=== PATIENT | male | born 1980 | race African-American/Black ===

== ENCOUNTER 2016-09-18 01:06 | Inpatient (IN) | payer OTHER ==
--- NOTE | ~2016-09-18 | DS ---
Unit #: [id number] #: [id number] Patient: KAYLEN LEVIN [id number] [facility] [address] [place] [address] [id number] MR#: [id number] NAME: KAYLEN LEVIN. ROOM: P176 Age: 36 Sex: M Admission Date: 09/18/2016 : 1980 Discharge Date: 09/23/2016 Attending Physician: Sj Springer M.D. Primary Care Physician: Primary Care Physician No DISCHARGE SUMMARY REASON FOR ADMISSION John is a 35-year-old man, who was found sleeping outside of the [facility], having overdosed on "spice" after the use of crack and heroin. He had suicidal ideation and reported history of bipolar disorder. He was admitted to [facility]. DIAGNOSTIC STUDIES LABORATORY RESULTS: Please see hospital chart. HOSPITAL COURSE The patient was admitted and placed on suicide precautions. Geodon was initiated for treatment of bipolar depression, which the patient stated had been effective in the past. He had minimal participation in groups and activities, and contracted for safety on the date of discharge, although, he was still quite dysphoric about his homeless status. DISCHARGE DIAGNOSES AXIS I: Bipolar, depressed; polysubstance dependence. AXIS II: No diagnosis. AXIS III: None acute. AXIS IV: AXIS V: DISCHARGE INSTRUCTIONS Follow up with the [facility] and [facility]. DISCHARGE MEDICATIONS Geodon 40 mg at bedtime for mood. CONDITION AT DISCHARGE Fair. PROGNOSIS Fair. DIET AND ACTIVITY Per primary care doctor. Dictated by... Sj Springer M.D. Unit #: [id number] #: [id number] Patient: KAYLEN LEVIN [facility]/modl TD: 11/28/2016 14:17 JOB #: [id number] DISCHARGE SUMMARY Page 1 of 1 X Sj Springer MD X DISCHARGE SUMMARY
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
--- NOTE | ~2016-09-18 | HP ---
Unit #: [id number] #: [id number] Patient: MICHOACANO LEVIN [id number] [place] [address] [id number] I MR#: [id number] NAME: MICHOACANO LEVIN. ROOM: P176 Age: 35 Sex: M Admission Date: 09/18/2016 : 1980 Attending Physician: Sj Springer M.D. Admitting Physician: Sj Springer M.D. Primary Care Physician: Primary Care Physician No HISTORY AND PHYSICAL HISTORY OF PRESENT ILLNESS Michoacano is a 35 year old admitted to [facility] with psychotic behavior. PAST MEDICAL HISTORY 1. History of illicit substance abuse to include crack cocaine and spice 2. Morbid obesity PAST SURGICAL HISTORY Nothing reported ALLERGIES No known drug allergies. SOCIAL HISTORY Smokes one pack per day. Denies alcohol, admits to a history of illicit substance abuse to include crack cocaine and spice. FAMILY HISTORY Medically noncontributory. REVIEW OF SYSTEMS CONSTITUTIONAL: No fever or chills. HEENT: Denies any sore throat, ear pain or runny nose. CARDIOVASCULAR: Denies chest pain, irregular heart rhythm or palpitations. CHEST: Denies shortness of breath or cough. No hemoptysis. GASTROINTESTINAL: Denies nausea, vomiting, diarrhea or chronic constipation. ENDOCRINE: Denies history of increased thirst or urination. No recent significant weight loss or gain. GENITOURINARY: Denies dysuria, frequency, or hematuria. SKIN: Denies any rashes. HEMATOLOGIC: Denies history of increased bleeding or bruising. MUSCULOSKELETAL: Denies any hot, swollen joints. No generalized muscle pain. NEUROLOGIC: Denies problems with vision or speech. No frequent, severe headaches. No numbness, tingling or weakness in any extremities. Denies loss of bladder or bowel control. CURRENT MEDICATIONS 1. Geodon 40 mg q.h.s. 2. Nicotine patch 14 mg q day 3. Desyrel p.r.n. Unit #: [id number] #: [id number] Patient: MICHOACANO LEVIN 4. Milk of Magnesia p.r.n. 5. Maalox p.r.n. 6. Tylenol p.r.n. PHYSICAL EXAMINATION GENERAL: Alert, well-nourished, in no apparent distress. VITAL SIGNS: Blood pressure 124/78, heart rate 74, respirations 16, temperature 98.6. WEIGHT: 280 pounds. HEIGHT: 5'11". SKIN: Warm and dry without rash or lesion. HEENT: Normocephalic. TMs not viewed. Oral and nasal passages clear. Conjunctivae clear. Pupils equal, round and reactive to light and accommodation. Extraocular movements intact. NECK: Supple without lymphadenopathy or thyromegaly. HEART: Regular rate and rhythm without murmur. LUNGS: Clear. ABDOMEN: Soft, nontender. : Not done. EXTREMITIES: No evidence of cyanosis, clubbing or edema. Moves all extremities without focal deficit. NEUROLOGICAL: Grossly within normal limits. Cranial Nerves: II: Visual jasso are intact. III, IV AND : Extraocular movements are intact. Pupils are equal, round and reactive to light. V: Facial sensation is grossly normal. VII: Facial movements and expression are normal. VIII: Auditory acuity grossly intact. IX, X: Uvula is midline. Phonation is normal. XI: Patient shrugs shoulders and turns head normally. XII: Tongue protrudes in the midline. Sensory and Motor Function: Sensory and motor sensation is grossly normal. Motor: moves all extremities well. Coordination: Gait is normal. Deep Tendon Reflexes: Intact. IMPRESSION Psychiatric admission RECOMMENDATIONS PSYCHIATRIC: Per psychiatrist. MEDICAL: I see no contraindications to participating in facility's activities. MEDICAL PROGNOSIS Good. MEDICAL CONDITION Stable. Dictated by... Nidia Broussard P.A.-C. for Pily Pope/georgnia Unit #: [id number] #: [id number] Patient: MICHOACANO LEVIN TD: 09/18/2016 21:20 JOB #: [id number] HISTORY AND PHYSICAL Page 1 of 1 X Nidia Broussard HISTORY AND PHYSICAL
--- NOTE | ~2016-09-18 | PN ---
Unit #: [id number] #: [id number] Patient: MICHOACANO LEVIN [id number] [facility] [address] [place] [address] [id number] I MR#: [id number] NAME: MICHOACANO LEVIN. ROOM: P176 Age: 35 Sex: M Admission Date: 09/18/2016 : 1980 Attending Physician: Sj Springer M.D. Admitting Physician: Sj Springer M.D. Primary Care Physician: Primary Care Physician Lety HERNANDEZ PROGRESS NOTES DATE 09/21/2016 DISCUSSION Michoacano continues to have a downcast mood and affect. He is sleeping better with the Geodon and tolerating it well with no adverse side effects. He is alert and fully oriented with no evidence of psychosis and improved depression today. ASSESSMENT Bipolar, depressed. PLAN Continue current treatment plan. Dictated by... Pily Osullivan/kira TD: 09/23/2016 06:54 JOB #: [id number] [facility] PROGRESS NOTES Page 1 of 1 X Sj Springer MD PROGRESS NOTE
[2016-09-18 09:44] LABS: BASOPHIL# 0.1 X10e3 (0-0.3); BASOPHIL% 0.5 % (0-2.5); EOSINOPHIL# 0.2 X10e3 (0-0.7); EOSINOPHIL% 2.1 % (0.0-7.0); HEMATOCRIT 41.5 % (38.0-50.0); HEMOGLOBIN 13.3 gm/dL (13.0-16.0); LYMPHOCYTE# 3.2 X10e3 (1.0-3.5); LYMPHOCYTE% 30.2 % (17.0-45.0); MEAN CELL VOLUME 82.3 FL (83-96); MEAN CORPUSCULAR HEMOGLOBIN 26.4 PG (28-34); MEAN CORPUSCULAR HGB CONC 32.1 g/dL (30-36); MEAN PLATELET VOLUME 9.6 FL (6.5-11.5); MONOCYTE% 9.2 % (3.0-12.0); NEUTROPHIL# 6.2 X10e3 (1.5-7.1); PLATELET COUNT 276 X10e3 (140-420); RED BLOOD COUNT 5.05 X10e (3.90-5.60); WHITE BLOOD COUNT 10.7 X10e3 (4.0-10.5)
[2016-09-18 09:55] LABS: DIFF IND NO
[2016-09-18 10:10] LABS: ALBUMIN SERUM 3.4 g/dL (3.5-5.0); BILIRUBIN,TOTAL 0.4 mg/dL (0.2-2.0); BUN/CREATININE RATIO 18.88; CALCIUM SERUM 9.1 mg/dL (8.4-10.2); CREATININE SERUM 0.9 mg/dL (0.6-1.4); GLOM FILT RATE Estimated 127.8 mL/min (>60); POTASSIUM 4.2 mmol/L (3.5-5.1)
[2016-09-19 10:38] LABS: AMPHETAMINE NEG (NEG); BARBITURATES NEG (NEG); BENZODIAZEPINES NEG (NEG); COCAINE POS (NEG); MARIJUANA NEG (NEG); OPIATES NEG (NEG); TRICYCLIC ANTIDEPRESSANTS NEG (NEG); U METHADONE NEG (NEG)
== END 2016-09-23 11:20 | disposition home or self-care (01) | DRG 885 ==
LOC: P1E 01:06
PROVIDERS: Psychiatry & Neurology Psychiatry
DX: F31.30 Bipolar disorder, current episode depressed, mild or moderate severity, unspecified (principal); F14.20 Cocaine dependence, uncomplicated; F19.20 Other psychoactive substance dependence, uncomplicated; E66.01 Morbid (severe) obesity due to excess calories; F17.210 Nicotine dependence, cigarettes, uncomplicated
CPT/HCPCS: 80053; 80307; 85025

== ENCOUNTER 2016-09-27 02:00 | Inpatient (IN) | payer OTHER ==
--- NOTE | ~2016-09-27 | PN ---
Unit #: [id number] #: [id number] Patient: MICHOACANO LEVIN [id number] [facility] [address] [place] [address] [id number] I MR#: [id number] NAME: MICHOACANO LEVIN. ROOM: [facility] Age: 35 Sex: M Admission Date: 09/27/2016 : 1980 Attending Physician: Sj Springer M.D. Admitting Physician: Sj Springer M.D. Primary Care Physician: Primary Care Physician Lety HERNANDEZ PROGRESS NOTES DATE 10/02/2016 DISCUSSION Michoacano continues to have active depression and some suicidal thinking today. He is a little sleepy this morning from his increased dose of Geodon last night. However, he is able to get up and participate in groups and activities. He is alert and fully oriented. Memory and concentration are fair and thought processes are goal directed. There is no psychosis. ASSESSMENT 1. Bipolar, depressed. 2. Cocaine dependence. PLAN Continue current treatment plan. Dictated by... Pily Osullivan/clare TD: 10/02/2016 22:43 JOB #: [id number] [facility] PROGRESS NOTES Page 1 of 1 X Sj Springer MD PROGRESS NOTE
--- NOTE | ~2016-09-27 | PN ---
Unit #: [id number] #: [id number] Patient: KAYLEN LEVIN [id number] [facility] [address] [place] [address] [id number] I MR#: [id number] NAME: KAYLEN LEVIN. ROOM: 77 Age: 35 Sex: M Admission Date: 09/27/2016 : 1980 Attending Physician: Sj Springer M.D. Admitting Physician: Sj Springer M.D. Primary Care Physician: Primary Care Physician Lety HERNANDEZ PROGRESS NOTES DATE OF SERVICE: 10/01/2016 DISCUSSION John has tolerated his increased dose of Geodon with no adverse side effects. His mood continues to be labile and depressed with a congruent affect. He is alert and fully oriented. Memory and concentration were fair to good. Thought processes were goal directed with no psychosis. ASSESSMENT Bipolar depressed, history of cocaine abuse. PLAN Continue current treatment plan. Dictated by... Pily Osullivan/elizabeth TD: 10/01/2016 23:42 JOB #: [id number] [facility] PROGRESS NOTES Page 1 of 1 X Sj Springer MD PROGRESS NOTE
--- NOTE | ~2016-09-27 | DS ---
Unit #: [id number] #: [id number] Patient: MICHOACANO LEVIN [id number] [facility] [address] [place] [address] [id number] I MR#: [id number] NAME: MICHOACANO LEVIN. ROOM: [facility] Age: 35 Sex: M Admission Date: 09/27/2016 : 1980 Discharge Date: 10/04/2016 Attending Physician: Sj Springer M.D. Primary Care Physician: Primary Care Physician No DISCHARGE SUMMARY REASON FOR ADMISSION Michoacano is a 35-year-old man, recently discharged from this facility, who became depressed and hopeless while staying at [facility]. He also relapsed on cocaine and had suicidal ideation with a plan to jump off a bridge. He could not contract for safety and was returned to [facility]. DIAGNOSTIC STUDIES LABORATORY RESULTS: Please see hospital chart. HOSPITAL COURSE Michoacano was admitted and placed on suicide precautions. Geodon was restarted at 40 mg bedtime, later increased to 80 mg for improved control of depression. He had minimal detox or "crash" from his cocaine abuse and tolerated his medication with no adverse side effects. He was active in seeking placement outside of the hospital, and on the date of discharge, he had achieved placement at a local long-term care facility and was discharged in stable condition. DISCHARGE DIAGNOSES AXIS I: Cocaine dependence, bipolar depressed. AXIS II: No diagnosis. AXIS III: None acute. AXIS IV: AXIS V: DISCHARGE INSTRUCTIONS Follow up with [facility] in [place], [place]. DISCHARGE MEDICATIONS Geodon 80 mg at bedtime for mood stability. CONDITION AT DISCHARGE Improved. PROGNOSIS Fair to good. DIET AND ACTIVITY Per primary care doctor. Unit #: [id number] #: [id number] Patient: MICHOACANO LEVIN Dictated by... Sj Springer M.D. [facility]/modmaurice TD: 10/05/2016 00:59 JOB #: [id number] DISCHARGE SUMMARY Page 1 of 1 X Sj Springer MD X DISCHARGE SUMMARY
--- NOTE | ~2016-09-27 | HP ---
Unit #: [id number] #: [id number] Patient: MICHOACANO LEVIN [id number] [place] [address] [id number] I MR#: [id number] NAME: MICHOACANO LEVIN. ROOM: [facility] Age: 35 Sex: M Admission Date: 09/27/2016 : 1980 Attending Physician: Sj Springer M.D. Admitting Physician: Sj Springer M.D. Primary Care Physician: Primary Care Physician No HISTORY AND PHYSICAL NOTE Michoacano is a 35-year-old male admitted on 09/27/2016 to [facility] for suicidal ideation. He was previously admitted on 09/18/2016 for suicidal ideation and psychotic behavior. Reviewed the history and physical from that admission, and there are no changes. Dictated by... Carlton Pitts TD: 09/28/2016 09:09 JOB #: [id number] HISTORY AND PHYSICAL Page 1 of 1 X CAMPBELL BARAHONA APRN HISTORY AND PHYSICAL
--- NOTE | ~2016-09-27 | PN ---
Unit #: [id number] #: [id number] Patient: KAYLEN LEVIN [id number] [facility] [address] [place] [address] [id number] I MR#: [id number] NAME: KAYLEN LEVIN. ROOM: 77 Age: 35 Sex: M Admission Date: 09/27/2016 : 1980 Attending Physician: Sj Springer M.D. Admitting Physician: Sj Springer M.D. Primary Care Physician: Primary Care Physician Lety HERNANDEZ PROGRESS NOTES DATE OF SERVICE: 10/03/2016 DISCUSSION Mr. Levin showing some improvement today, although, he remains depressed and somewhat agitated. He is working actively on discharge planning. He is alert and fully oriented with no evidence of psychosis. ASSESSMENT Bipolar, depressed and cocaine dependence. PLAN We will continue working toward discharge in the near future with long-term placement at a chemical dependence facility. Dictated by... Pily OsullivanH/elizabeth TD: 10/04/2016 18:43 JOB #: [id number] [facility] PROGRESS NOTES Page 1 of 1 X Sj Springer MD PROGRESS NOTE
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
[2016-09-28 14:07] LABS: BASOPHIL# 0.1 X10e3 (0-0.3); BASOPHIL% 0.9 % (0-2.5); EOSINOPHIL# 0.3 X10e3 (0-0.7); EOSINOPHIL% 3.5 % (0.0-7.0); HEMATOCRIT 42.5 % (38.0-50.0); HEMOGLOBIN 13.7 gm/dL (13.0-16.0); LYMPHOCYTE# 2.4 X10e3 (1.0-3.5); LYMPHOCYTE% 24.5 % (17.0-45.0); MEAN CELL VOLUME 82.1 FL (83-96); MEAN CORPUSCULAR HEMOGLOBIN 26.5 PG (28-34); MEAN CORPUSCULAR HGB CONC 32.3 g/dL (30-36); MEAN PLATELET VOLUME 9.6 FL (6.5-11.5); MONOCYTE# 0.8 X10e3 (0-1.0); MONOCYTE% 8.2 % (3.0-12.0); NEUTROPHIL# 6.2 X10e3 (1.5-7.1); NEUTROPHIL% 62.9 % (40-75); PLATELET COUNT 310 X10e3 (140-420); RED BLOOD COUNT 5.18 X10e (3.90-5.60); RED CELL DISTRIBUTION WIDTH 14.8 % (11.0-15.5); WHITE BLOOD COUNT 9.9 X10e3 (4.0-10.5)
[2016-09-28 14:09] LABS: DIFF IND YES
[2016-09-28 14:11] LABS: ALBUMIN SERUM 3.5 g/dL (3.5-5.0); BILIRUBIN,TOTAL 0.8 mg/dL (0.2-2.0); BUN/CREATININE RATIO 12.22; CALCIUM SERUM 9.2 mg/dL (8.4-10.2); CREATININE SERUM 0.9 mg/dL (0.6-1.4); GLOM FILT RATE Estimated 127.8 mL/min (>60); POTASSIUM 3.6 mmol/L (3.5-5.1); PROTEIN TOTAL SERUM 6.1 g/dL (6.0-8.3)
[2016-09-28 15:04] LABS: PLATELET ESTIMATE NORMAL (NORMAL)
[2016-09-28 15:06] LABS: BURR CELLS PRESENT; POIKILOCYTOSIS MOD
== END 2016-10-04 09:00 | disposition home or self-care (01) | DRG 885 ==
LOC: P1E 05:05
PROVIDERS: Psychiatry & Neurology Psychiatry
DX: F31.30 Bipolar disorder, current episode depressed, mild or moderate severity, unspecified (principal); R45.851 Suicidal ideations; F14.20 Cocaine dependence, uncomplicated
CPT/HCPCS: 80053; 85025